=== PATIENT | female | born 1970 | race Caucasian/White ===

== ENCOUNTER 2017-10-12 08:41 | Emergency (ER) | payer BC, OTHER ==
[2017-10-12] MEDS ORDERED: HYDROMORPHONE HCL 2 MG/ML SOL IV ONE (09:02)
[2017-10-12] MEDS ORDERED: KETOROLAC TROMETHAMINE 30 MG/ML SOL IV ONE (09:02)
[2017-10-12] MEDS ORDERED: HYDROMORPHONE 1 MG/ML SYRINGE ONE (09:10)
[2017-10-12] MEDS ORDERED: KETOROLAC TROMETHAMINE 30 MG/ML SOL ONE (09:10)
[2017-10-12] MEDS ORDERED: SODIUM CHLORIDE 0.9% FLUSH 10 ML SOL IV PRN (09:38)
[2017-10-12 10:28] VITALS: TEMP 98
[2017-10-12] MEDS ORDERED: PROPOFOL 10 MG/ML EMU IV ONE ×2 (11:05→11:31)
[2017-10-12 12:59] VITALS: BP 120/94; PULSE 89; RESP 18; O2SAT 97
== END 2017-10-12 12:53 | disposition home or self-care (01) ==
LOC: ED 08:41
DX: S43.004A Unspecified dislocation of right shoulder joint, initial encounter (principal); M79.605 Pain in left leg; V80.918A Animal-rider injured in other transport accident, initial encounter
CPT/HCPCS: 73020; 73030; 96374; 96375; 99283; 99285; J1885; J1170; J2704

== ENCOUNTER 2017-10-19 14:43 | Outpatient (CLI) | payer BC ==
[2017-10-12 12:59] VITALS: O2SAT 97
== END 2017-10-19 14:44 | disposition home or self-care (01) ==
LOC: CONVCARE 14:43
PROVIDERS: ATTEND Orthopaedic Surgery
DX: S43.004A Unspecified dislocation of right shoulder joint, initial encounter (principal); Y93.K9 Activity, other involving animal care; M75.91 Shoulder lesion, unspecified, right shoulder
CPT/HCPCS: 73030